=== PATIENT | male | born 1980 | race Caucasian/White ===

== ENCOUNTER 2017-04-24 12:17 | Emergency (ER) | payer OTHER ==
[~2017-04-24] VITALS: Ht 195.6 cm; Wt 163.3 kg
[~2017-04-24 12:17] MED LIST: LISI-334 PO; TRAM-48 PO
--- NOTE | 2017-04-24 12:46 | PHYS DOC ---
Past Medical History Past Medical History: Diabetes-Type II, Hypertension Past Surgical History: Other Additional Past Surgical Histo: RT KNEE Additional Information: .05 PPD Alcohol Use: None Drug Use: None Adult General Chief Complaint Chief Complaint: HYPERGLYCEMIA HPI HPI Patient is a 36 year old male who presents with fatigue and frequent urination due to poorly controlled diabetes. He checked his Leukos today and it was greater than 600 and he has been taking metformin and thousand milligrams twice a day and reports compliance. Patient denies fever headache blurry vision neck pain chest pain shortness of breath abdominal pain nausea vomiting or diarrhea. Primary care physician is the PA for Dr. Boo. Review of Systems Review of Systems Constitutional: Denies fever or chills [] Eyes: Denies change in visual acuity, redness, or eye pain [] HENT: Denies nasal congestion or sore throat [] Respiratory: Denies cough or shortness of breath [] Cardiovascular: No additional information not addressed in HPI [] GI: Denies abdominal pain, nausea, vomiting, bloody stools or diarrhea [] : Denies dysuria or hematuria [] Musculoskeletal: Denies back pain or joint pain [] Integument: Denies rash or skin lesions [] Neurologic: Denies headache, focal weakness or sensory changes [] Endocrine: Denies polyuria or polydipsia [] Current Medications Current Medications Current Medications Medications (Trade) Dose Ordered Sig/Emmanuel Start Time Stop Time Status Last Admin Dose Admin Acetaminophen (Tylenol) 1,000 mg 1X ONCE 04/24/17 13:15 04/24/17 13:16 DC 04/24/17 13:17 1,000 MG Insulin Human Regular (NovoLIN R VIAL) 10 unit 1X ONCE 04/24/17 14:45 04/24/17 14:46 DC 04/24/17 14:45 10 UNIT Sodium Chloride 1,000 ml @ 1,000 mls/hr 1X ONCE 04/24/17 14:45 04/24/17 15:44 DC 04/24/17 14:35 1,000 MLS/HR Allergies Allergies Allergies Coded Allergies Type Severity Reaction Last Updated Verified No Known Drug Allergies 08/21/16 No Physical Exam Physical Exam Constitutional: Well developed, well nourished, no acute distress, non-toxic appearance. [] HENT: Normocephalic, atraumatic, bilateral external ears normal, oropharynx moist, no oral exudates, nose normal. [] Eyes: PERRLA, EOMI, conjunctiva normal, no discharge. [] Neck: Normal range of motion, no tenderness, supple, no stridor. [] Cardiovascular:Heart rate regular rhythm, no murmur [] Lungs & Thorax: Bilateral breath sounds clear to auscultation [] Abdomen: Obese, Bowel sounds normal, soft, no tenderness, no masses, no pulsatile masses. [] Skin: Warm, dry, no erythema, no rash. [] Back: No tenderness, no CVA tenderness. [] Extremities: No tenderness, no cyanosis, no clubbing, ROM intact, no edema. [] Neurologic: Alert and oriented X 3, normal motor function, normal sensory function, no focal deficits noted. [] Psychologic: Affect normal, judgement normal, mood normal. [] Current Patient Data Vital Signs Vital Signs Date Time Temp Pulse Resp B/P (MAP) Pulse Ox O2 Delivery O2 Flow Rate FiO2 04/24/17 12:33 98.7 100 22 168/97 (120) 97 Room Air 98.7 Lab Values Laboratory Tests Test 04/24/17 12:31 04/24/17 12:33 04/24/17 12:55 04/24/17 13:17 Urine Collection Type Unknown Urine Color Yellow Urine Clarity Clear Urine pH 5.5 Urine Specific Starks >=1.030 Urine Protein 30 mg/dL (NEG-TRACE) Urine Glucose (UA) >=1000 mg/dL (NEG) Urine Ketones (Stick) Negative mg/dL (NEG) Urine Blood Negative (NEG) Urine Nitrite Negative (NEG) Urine Bilirubin Negative (NEG) Urine Urobilinogen Dipstick 0.2 mg/dL (0.2 mg/dL) Urine Leukocyte Esterase Negative (NEG) Urine RBC Occ /HPF (0-2) Urine WBC Occ /HPF (0-4) Urine Bacteria 0 /HPF (0-FEW) Glucose (Fingerstick) 536 mg/dL (70-99) *H 448 mg/dL (70-99) H POC Hemoglobin 16.0 g/dL (14-18) POC Hematocrit 47 % (37-52) POC Sodium 131 mmol/L (135-145) L POC Potassium 4.6 mmol/L (3.5-5.0) POC Chloride 94 mmol/L (98-110) L POC Total CO2 27 mmol/L (23-32) Anion Gap 17 mmol/L (6-14) H POC Blood Urea Nitrogen 16 mg/dL (8-26) POC Creatinine 0.7 mg/dL (0.5-1.4) Glucose Level 496 mg/dL (70-99) H POC Ionized Calcium (Breanna) 1.21 mmol/L (1.13-1.32) Test 04/24/17 14:18 04/24/17 15:19 Glucose (Fingerstick) 441 mg/dL (70-99) H 337 mg/dL (70-99) H Laboratory Tests 04/24/17 12:55 EKG EKG [] Radiology/Procedures Radiology/Procedures [] Course & Med Decision Making Course & Med Decision Making Pertinent Labs and Imaging studies reviewed. (See chart for details) The plan will be to check an i-STAT and UA to exclude DKA, given IV fluids, and probably supplement his treatment with insulin in the ED. I've already recommended very close follow-up with his PCP to assess for the need for starting insulin. [Time 1:05 PM i-STAT chemistries demonstrate no evidence of DKA, hyperkalemia or renal insufficiency. UA shows no ketones or infection. Plan to give IV insulin IV fluids and then dismissed home.] Dragon Disclaimer Dragon Disclaimer This electronic medical record was generated, in whole or in part, using a voice recognition dictation system. Departure Departure Impression: Primary Impression: Hyperglycemia Additional Impression: Uncontrolled diabetes mellitus Disposition: HOME, SELF-CARE Condition: STABLE Referrals: ZEESHAN MILLER (PCP) Patient Instructions: Hyperglycemia, [id number] Additional Instructions: Please get follow-up with your primary care physician as you would likely will need to be started on insulin. Problem Qualifiers REINA IQBAL MD Apr 24, 2017 12:46
[2017-04-24 12:53] LABS: BILIRUBIN,URINE NEGATIVE (NEG); GLUCOSE,URINE >=1000 mg/dL (NEG); NITRITE,URINE NEGATIVE (NEG); PH,URINE 5.5; PROTEIN,URINE 30 mg/dL (NEG-TRACE); UROBILINOGEN,URINE 0.2 mg/dL (0.2 mg/dL)
[2017-04-24 13:00] LABS: BACTERIA,URINE 0 /HPF (0-FEW); RBC,URINE OCC /HPF (0-2); WBC,URINE OCC /HPF (0-4)
[2017-04-24] MEDS ORDERED: IV NORMAL SALINE 1000ML BAG 1,000 ML IV ONE ×2 (13:00→14:45)
[2017-04-24 13:01] LABS: POTASSIUM ISTAT 4.6 mmol/L (3.5-5.0)
[2017-04-24] MEDS ORDERED: INSULIN REGULAR 100 UNIT/ML 10ML VIAL. IV ONE ×2 (13:15→14:45)
[2017-04-24] MEDS ORDERED: ACETAMINOPHEN 500 MG TABLET PO ONE (13:15)
[2017-04-24 15:30] VITALS: BP 120/72
== END 2017-04-24 15:50 | disposition home or self-care (01) ==
LOC: ER 12:17
DX: E11.65 Type 2 diabetes mellitus with hyperglycemia (principal); I10 Essential (primary) hypertension; F17.200 Nicotine dependence, unspecified, uncomplicated
CPT/HCPCS: 80047; 81001; 82962; 96361; 96374; 96376; 99284; J1815; J7030